=== PATIENT | female | born 1965 | race Caucasian/White ===

== ENCOUNTER 2018-09-23 10:46 | Emergency (ER) | payer OTHER, SELFPAY ==
[~2018-09-23] VITALS: Ht 157.5 cm; Wt 88.6 kg
[~2018-09-23 10:46] MED LIST: ASPI-556 PO; BUPR150SR PO; METO50TA18 PO; SIMV40TA5 PO; TOPI200T PO
[2018-09-23] MEDS ORDERED: ARIP2 PO (10:56)
[2018-09-23] MEDS ORDERED: SERT50TA12 PO (10:56)
[2018-09-23 10:59] LABS: GLUCOSE,POINT OF CARE 299 MG/DL (70-110)
[2018-09-23] MEDS ORDERED: ONDANSETRON HCL 4 MG TABLET PO ONE (13:00)
[2018-09-23] MEDS ORDERED: KETOROLAC TROMETHAMINE 60 MG/2 ML VIAL IM ONE (13:00)
[2018-09-23] MEDS ORDERED: DIAZEPAM 5 MG TABLET PO ONE (13:30)
[2018-09-23] MEDS ORDERED: SODIUM CHLORIDE 0.9% 1,000 ML IV ONE ×2 (13:44→13:45)
[2018-09-23 13:49] LABS: GLUCOSE,POINT OF CARE 229 MG/DL (70-110)
[2018-09-23 14:45] VITALS: BP 117/77
[2018-09-23 14:49] LABS: GLUCOSE,POINT OF CARE 185 MG/DL (70-110)
== END 2018-09-23 15:11 | disposition home or self-care (01) ==
LOC: EMS 10:47
DX: S39.012A Strain of muscle, fascia and tendon of lower back, initial encounter (principal); E11.65 Type 2 diabetes mellitus with hyperglycemia; M62.830 Muscle spasm of back; F32.9 Major depressive disorder, single episode, unspecified; Z79.82 Long term (current) use of aspirin; X58.XXXA Exposure to other specified factors, initial encounter; Y93.89 Activity, other specified; Y92.89 Other specified places as the place of occurrence of the external cause; Y99.8 Other external cause status
CPT/HCPCS: 81002; 82948; 82962; 96360; 96372; 99283; J1885; J7030; Q0162